=== PATIENT | female | born 1945 | race Caucasian/White ===

== ENCOUNTER 2022-07-09 10:55 | Emergency (ER) | payer OTHER ==
[2022-07-09] MEDS ORDERED: ACETAMINOPHEN 500 MG TAB ONE (11:20)
--- NOTE | 2022-07-09 11:41 | RAD REPORT ---
EXAM DESCRIPTION: RAD - Chest Single View - 07/09/2022 11:36 am CLINICAL HISTORY: Cough Chest pain. COMPARISON: No comparisons FINDINGS: Portable technique limits examination quality. The lungs are emphysematous but grossly clear. The heart is normal in size. No displaced fractures.Ao rtic atherosclerosis. IMPRESSION: COPD.
[2022-07-09] MEDS ORDERED: CEFTRIAXONE 1000 MG/VIAL ONE (11:55)
[2022-07-09] MEDS ORDERED: Ringers Lactate 1,000 ML IV ONE (11:55)
[2022-07-09 12:07] LABS: Protime INR 1.08
[2022-07-09 12:16] LABS: Albumin 3.8 g/dL (3.4-5.0); Bilirubin Total 0.5 mg/dL (0.2-1.0); Potassium 3.8 mmol/L (3.5-5.1); Protein, Total 7.2 g/dL (6.4-8.2)
[2022-07-09 12:45] LABS: Absolute Lymphocytes (CBC) 0.2 K/uL (0.7-4.9); Hematocrit 29.7 % (36.0-45.0); Lymphocytes % 8.3 % (15.3-44.8); MCV 90.3 fL (80-100); MPV 9.7 fL (7.6-11.3); RBC Red Blood Cell Count 3.29 M/uL (3.86-4.86)
[2022-07-09 12:47] LABS: SARS-COV-2 RT PCR POSITIVE (NEGATIVE)
--- NOTE | 2022-07-09 13:35 | RAD REPORT ---
EXAM DESCRIPTION: CT - Head Brain Wo Cont - 07/09/2022 1:26 pm CLINICAL HISTORY: Transient ischemic attack (TIA) COMPARISON: No comparisons TECHNIQUE: Axial 5 mm thick images of the head were obtained without IV contrast. All CT scans are performed using dose optimization technique as appropriate and may include automated exposure control or mA/KV adjustment according to patient size. FINDINGS: No intracranial hemorrhage, mass, edema or shift of mid-line structures. No acute infarcti on changes seen. No abnormal extra-axial fluid collections. Mild for age atrophy changes are present with ventricles in proportion. Mild chronic ischemic change. Mastoid air cells and visualized portions of the paranasal sinuses are clear. No acute bony findings. IMPRESSION: Negative non-contrast CT head examination for acute finding. Patient has mild atrophy and mild chronic ischemic change. There are ongoing concerns for acute CVA, follow-up MR imaging could be performed.
[2022-07-09 13:48] LABS: Urine Blood Trace-intact (Negative); Urine Glucose Negative (Negative); Urine Protein Negative (Negative); Urine Specific Gravity 1.015 (1.005-1.030)
[2022-07-09 14:03] LABS: Urine Bacteria None Seen /HPF (<20)
--- NOTE | 2022-07-09 14:15 | ER ---
Nurse's Notes [facility] Name: She Swartz Age: 77 yrs Sex: Female : 1945 Arrival Date: 07/09/2022 Time: 11:04 Bed 18 Private MD: Diagnosis: SARS-associated coronavirus as the cause of diseases classified elsewhere;Fever, unspecified Presentation: 07/09 11:04 Chief complaint: EMS states: toned out to pt home for general weakness, AMS, fever. ld1 Denies pain. 11:07 Coronavirus screen: At this time, the client does not indicate any symptoms associated ld1 with coronavirus-19. Ebola Screen: No symptoms or risks identified at this time. Initial Sepsis Screen: Does the patient meet any 2 criteria? Temp <36.0*C (96.8*F)) or > 38.3*C (100.9*F). Altered Mental Status. HR > 90 bpm. Yes Does the patient have a suspected source of infection? No. Patient's initial sepsis screen is negative. Risk Assessment: Do you want to hurt yourself or someone else? Patient reports no desire to harm self or others. Onset of symptoms was July 09, 2022. 11:07 Method Of Arrival: EMS: [facility] ld1 11:07 Acuity: JAQUELIN 3 ld1 Triage Assessment: 11:09 General: Appears in no apparent distress. comfortable, Behavior is calm, cooperative, ld1 appropriate for age. Pain: Denies pain. EENT: No signs and/or symptoms were reported regarding the EENT system. Neuro: Level of Consciousness is awake, alert, obeys commands, confused, Oriented to person, place, time, situation, Reports weakness. Cardiovascular: Capillary refill < 3 seconds Patient's skin is warm and dry. Rhythm is sinus tachycardia. Respiratory: Airway is patent Respiratory effort is even, unlabored. GI: Abdomen is flat, non-distended. : No signs and/or symptoms were reported regarding the genitourinary system. Derm: Skin temperature is hot. Musculoskeletal: No signs and/or symptoms reported regarding the musculoskeletal system. Historical: - Allergies: 11:08 No Known Allergies; ld1 - Home Meds: 11:08 Alprazolam Oral 0.25 mg as needed [Active]; Aspirin Oral 81 mg daily [Active]; ld1 11:09 Calcium Citrate Oral [Active]; Synthroid Oral daily [Active]; Clonazepam Oral 1 mg as ld1 needed [Active]; Trazodone Oral 75 mg twice a day [Active]; Metoprolol Tartrate Oral 25 mg after meals and before bedtime [Active]; - PMHx: 11:08 Aneurysm; Chronic back pain; ld1 - PSHx: 11:08 Cholecystectomy; ld1 - Immunization history:: Adult Immunizations up to date, Client reports receiving the 2nd dose of the Covid vaccine. - Social history:: Smoking status: Patient denies any tobacco usage or history of. Patient/guardian denies using alcohol. Screenin:13 [facility] ED Fall Risk Assessment (Adult) History of falling in the last 3 months, ld1 including since admission No falls in past 3 months (0 pts). Abuse screen: Denies threats or abuse. Denies injuries from another. Nutritional screening: No deficits noted. Tuberculosis screening: No symptoms or risk factors identified. Assessment: 11:13 Reassessment: See triage assessment. ld1 Vital Signs: 11:07 BP 155 / 54; Pulse 95; Resp 21; Temp 103(O); Pulse Ox 100% ; Weight 49.5 kg; Height 5 ld1 ft. 6 in. (167.64 cm); Pain 0/10; 11:07 Body Mass Index 17.61 (49.50 kg, 167.64 cm) ld1 NIH Stroke Scale Scores: 14:03 NIHSS Score: 0 [facility] ED Course: 11:04 Patient arrived in ED. 5 11:04 Johnny Cabezas PA is PHCP. jr8 11:04 Kyler Pritchard DO is Attending Physician. jr8 11:08 Triage completed. ld1 11:09 Arm band placed on. ld1 11:13 Patient has correct armband on for positive identification. Placed in gown. Bed in low ld1 position. Call light in reach. Side rails up X2. athletic monitor on. Pulse ox on. NIBP on. Door closed. Noise minimized. 11:13 No provider procedures requiring assistance completed. ld1 11:38 Chest Single View XRAY In Process Unspecified. EDMS 11:45 COVID-19/FLU A+B Sent. ld1 11:45 Inserted saline lock: 20 gauge in right antecubital area, using aseptic technique. ld1 Blood collected. 13:28 CT Head Brain wo Cont In Process Unspecified. EDMS 14:31 IV discontinued, intact, bleeding controlled, No redness/swelling at site. Pressure jh5 dressing applied. Administered Medications: 11:21 Drug: Acetaminophen 1000 mg Route: PO; ld1 11:59 Drug: Ringers - Lactated Ringers Solution 1000 ml Route: IV; Rate: bolus; Site: right 5 antecubital; 11:59 Drug: Rocephin (cefTRIAXone) 1 grams Route: IV; Rate: calculated rate; Site: right 5 antecubital; Medication: 11:13 VIS not applicable for this client. ld1 Outcome: 14:14 Discharge ordered by . chelsie 14:31 Discharged to home ambulatory. [facility] 14:31 Condition: good 14:31 Discharge instructions given to patient, family, Instructed on discharge instructions, follow up and referral plans. medication usage, safety practices, Demonstrated understanding of instructions, follow-up care, medications, Prescriptions given X 1. 14:32 Patient left the ED. jh5 NIH Stroke Scale - NIH Stroke Score Date: 07/09/2022 Time: 14:03 Total Score = 0 1a. Level of Consciousness (LOC) - 0(Alert) 1b. Level of Consciousness (LOC) (Month \T\ Age) - 0(Both) 1c. LOC Commands (Open \T\ Closes Eyes/Clinical Reviewer) - 0(Both) 2. Best Gaze (Lateral Gaze Paresis) - 0(Normal) 3. Visual Field Loss - 0(No visual loss) 4. Facial Palsy - 0(Normal) 5a. Left Arm: Motor (10-second hold) - 0(No drift) 5b. Right Arm: Motor (10-second hold) - 0(No drift) 6a. Left Leg: Motor (5-second hold - always test supine) - 0(No drift) 6b. Right Leg: Motor (5-second hold - always test supine) - 0(No drift) 7. Limb Ataxia (finger/nose \T\ heel/hudson - test with eyes open) - 0(Absent) 8. Sensory Loss (pinprick arms/legs/face) - 0(Normal) 9. Best Language: Aphasia (description/naming/reading) - 0(No aphasia) 10. Dysarthria (speech clarity - read or repeat words) - 0(Normal) 11. Extinction and Inattention (visual/tactile/auditory/spatial/personal) - 0(No abnormality) Initials: jr8 Signatures: Dispatcher [employer] Johnny Ro PA PA jr8 Yamilka Park, RN RN ld1 Inna Maza RN RN jh5
--- NOTE | 2022-07-09 14:15 | EDPHYS ---
Physician Documentation [facility] Name: She Swartz Age: 77 yrs Sex: Female : 1945 Arrival Date: 07/09/2022 Time: 11:04 Bed 18 Private MD: ED Physician Kyler Pritchard HPI: 07/09 14:03 This 77 yrs old Female presents to ER via EMS with complaints of General Weakness, jr8 Altered Mental Status, Fever. 14:03 Onset: The symptoms/episode began/occurred acutely, today. Associated signs and jr8 symptoms: Pertinent positives: fever. Modifying factors: The patient symptoms are alleviated by nothing, the patient symptoms are aggravated by nothing. The patient has not experienced similar symptoms in the past. The patient has not recently seen a physician. 77-year-old female that came in via EMS after having confusion this morning. Patient found to have 103 temperature in the emergency room. Denies any other symptoms at this time. Family stated that she was having trouble with remembering information.. Historical: - Allergies: 11:08 No Known Allergies; ld1 - Home Meds: 11:08 Alprazolam Oral 0.25 mg as needed [Active]; Aspirin Oral 81 mg daily [Active]; ld1 11:09 Calcium Citrate Oral [Active]; Synthroid Oral daily [Active]; Clonazepam Oral 1 mg as ld1 needed [Active]; Trazodone Oral 75 mg twice a day [Active]; Metoprolol Tartrate Oral 25 mg after meals and before bedtime [Active]; - PMHx: 11:08 Aneurysm; Chronic back pain; ld1 - PSHx: 11:08 Cholecystectomy; ld1 - Immunization history:: Adult Immunizations up to date, Client reports receiving the 2nd dose of the Covid vaccine. - Social history:: Smoking status: Patient denies any tobacco usage or history of. Patient/guardian denies using alcohol. ROS: 14:03 Eyes: Negative for injury, pain, redness, and discharge, ENT: Negative for injury, jr8 pain, and discharge, Neck: Negative for injury, pain, and swelling, Cardiovascular: Negative for chest pain, palpitations, and edema, Respiratory: Negative for shortness of breath, cough, wheezing, and pleuritic chest pain, Abdomen/GI: Negative for abdominal pain, nausea, vomiting, diarrhea, and constipation, Back: Negative for injury and pain, MS/Extremity: Negative for injury and deformity, Skin: Negative for injury, rash, and discoloration. 14:03 Constitutional: Positive for fever. 14:03 Neuro: Positive for altered mental status. Exam: 14:03 Constitutional: This is a well developed, well nourished patient who is awake, alert, jr8 and in no acute distress. Eyes: Pupils equal round and reactive to light, extra-ocular motions intact. Lids and lashes normal. Conjunctiva and sclera are non-icteric and not injected. Cornea within normal limits. Periorbital areas with no swelling, redness, or edema. ENT: Nares patent. No nasal discharge, no septal abnormalities noted. Tympanic membranes are normal and external auditory canals are clear. Oropharynx with no redness, swelling, or masses, exudates, or evidence of obstruction, uvula midline. Mucous membranes moist. Cardiovascular: Regular rate and rhythm with a normal S1 and S2. No gallops, murmurs, or rubs. Normal PMI, no JVD. No pulse deficits. Respiratory: Lungs have equal breath sounds bilaterally, clear to auscultation and percussion. No rales, rhonchi or wheezes noted. No increased work of breathing, no retractions or nasal flaring. Abdomen/GI: Soft, non-tender, with normal bowel sounds. No distension or tympany. No guarding or rebound. No evidence of tenderness throughout. Back: No spinal tenderness. No costovertebral tenderness. Full range of motion. Skin: Warm, dry with normal turgor. Normal color with no rashes, no lesions, and no evidence of cellulitis. MS/ Extremity: Pulses equal, no cyanosis. Neurovascular intact. Full, normal range of motion. 14:03 Neuro: Orientation: to person, place \T\ time. Mentation: slow to respond, confused, Memory: immediate memory is intact, remote memory is impaired, recent memory is intact, Cranial nerves: CN I not tested, CN II- XII are normal as tested, Cerebellar function: is grossly normal, Motor: moves all fours, Sensation: is normal, seizure activity, is not displayed by the patient, Abnormal movements: there are no abnormal movements. 14:03 ECG was reviewed by the Attending Physician. [facility] Vital Signs: 11:07 BP 155 / 54; Pulse 95; Resp 21; Temp 103(O); Pulse Ox 100% ; Weight 49.5 kg; Height 5 ld1 ft. 6 in. (167.64 cm); Pain 0/10; 11:07 Body Mass Index 17.61 (49.50 kg, 167.64 cm) ld1 NIH Stroke Scale Scores: 14:03 NIHSS Score: 0 jr8 MDM: 11:04 Patient medically screened. jr8 14:03 Data reviewed: vital signs, nurses notes, lab test result(s), CBC, white blood cell jr8 count, hemoglobin, hematocrit, platelets, electrolytes, sodium, potassium, chloride, serum bicarbonate, BUN, creatinine, serum glucose, Flu: negative covid +, EKG, radiologic studies, CT scan, plain films. Consideration of Admission/Observation Patient hemodynamically stable at this time. No fever currently. HR back to normal. No AMS after fluids and fever was reduced . Independent interpretation of the following test(s) in the Emergency Department EKG: See my EKG interpretation above X-Ray: My interpretation is No focal consolidation to suggest pneumonia. No other acute cardiopulmonary findings. Counseling: I had a detailed discussion with the patient and/or guardian regarding: the historical points, exam findings, and any diagnostic results supporting the discharge/admit diagnosis, lab results, radiology results. Response to treatment: the patient's symptoms have markedly improved after treatment, patient is well hydrated. 14:16 ED course: Patient doing markedly better. Now that fever is gone patient has no altered [facility] mentation. Discussed with patient and family that 103 temperature can be high and can cause altered mentation. No other bacterial findings to suggest otherwise. COVID-positive. Needs to isolate at home, push fluids, use [id number] medication for fever reduction and pain. We will start her on antiviral. If she worsens any point time to come back to the emergency room for further evaluations. Watch for respiratory distress. Patient and family good with plan will follow up and/or come back. Otherwise patient hemodynamically stable and safe to be discharged with close follow-up. Will be with daughter entire time as well.. 07/09 11:05 Order name: Blood Culture Adult (2) jr8 07/09 11:05 Order name: CBC with Diff; Complete Time: 13:06 jr8 07/09 11:05 Order name: CMP; Complete Time: 13:06 07/09 11:05 Order name: Lactate w/ 2H reflex if indic.; Complete Time: 13:07/09 11:05 Order name: Protime (+inr); Complete Time: 13:06 07/09 11:05 Order name: Ptt, Activated; Complete Time: 13:06 07/09 11:05 Order name: Chest Single View XRAY; Complete Time: 11:44 07/09 11:05 Order name: COVID-19/FLU A+B; Complete Time: 13:06 07/09 11:50 Order name: Glucose, Ancillary Testing; Complete Time: 13:06 EDMS 07/09 13:48 Order name: Urine Dipstick-Ancillary; Complete Time: 14:01 EDMS 07/09 13:54 Order name: Urine Microscopic Only; Complete Time: 14:11 07/09 13:54 Order name: Urine Culture 07/09 11:05 Order name: EKG; Complete Time: 11:06 07/09 11:05 Order name: Accucheck; Complete Time: 11:13 07/09 11:05 Order name: Cardiac monitoring; Complete Time: 11:14 07/09 11:05 Order name: Cath; Complete Time: 13:53 07/09 11:05 Order name: EKG - Nurse/Tech; Complete Time: 11:45 07/09 11:05 Order name: IV Saline Lock - Large Bore; Complete Time: 11:45 07/09 11:05 Order name: Labs collected and sent; Complete Time: 11:45 07/09 11:05 Order name: O2 Per Protocol; Complete Time: 11:14 07/09 11:05 Order name: O2 Sat Monitoring; Complete Time: 11:13 07/09 11:05 Order name: Vital Signs; Complete Time: 11:07/09 12:06 Order name: Labs - recollect needed: recollect lavender top; Complete Time: 12:45 07/09 13:08 Order name: CT Head Brain wo Cont; Complete Time: 14:01 8 EC:03 Rate is 93 beats/min. Rhythm is regular, Normal Sinus Rhythm. QRS Bard is Normal. MT jr8 interval is normal at 162 msec. QRS interval is normal at 82 msec. QT interval is normal at 370 msec. No Q waves. T waves are Normal. No ST changes noted. Clinical impression: Normal ECG. Interpreted by me. Reviewed by me. Administered Medications: 11:21 Drug: Acetaminophen 1000 mg Route: PO; ld1 11:59 Drug: Ringers - Lactated Ringers Solution 1000 ml Route: IV; Rate: bolus; Site: right [facility] antecubital; 11:59 Drug: Rocephin (cefTRIAXone) 1 grams Route: IV; Rate: calculated rate; Site: right 5 antecubital; Disposition: 19:19 Co-signature as Attending Physician, Kyler BERNARD was immediately available on-site ms3 in the Emergency Department for consultation in the care of the patient. Disposition Summary: 07/09/22 14:14 Discharge Ordered Location: Home jr8 Problem: new jr8 Symptoms: have improved jr8 Condition: Stable jr8 Diagnosis - SARS-associated coronavirus as the cause of diseases classified elsewhere jr8 - Fever, unspecified jr8 Followup: jr8 - With: Private Physician - When: 1 week - Reason: Recheck today's complaints, Continuance of care, Re-evaluation by your physician Discharge Instructions: - Discharge Summary Sheet jr8 - COVID-19 jr8 - 10 Things You Can Do to Manage Your COVID-19 Symptoms at Home - [facility] jr8 Forms: - Medication Reconciliation Form jr8 - Thank You Letter jr8 - Antibiotic Education jr8 - Prescription Opioid Use jr8 Prescriptions: - molnupiravir 200 mg Oral capsule - take 4 capsule by ORAL route every 12 hours for 5 days; 40 capsule; Refills: 0, jr8 Product Selection Permitted NIH Stroke Scale - NIH Stroke Score Date: 07/09/2022 Time: 14:03 Total Score = 0 1a. Level of Consciousness (LOC) - 0(Alert) 1b. Level of Consciousness (LOC) (Month \T\ Age) - 0(Both) 1c. LOC Commands (Open \T\ Closes Eyes/Real Estate Loan Processor) - 0(Both) 2. Best Gaze (Lateral Gaze Paresis) - 0(Normal) 3. Visual Field Loss - 0(No visual loss) 4. Facial Palsy - 0(Normal) 5a. Left Arm: Motor (10-second hold) - 0(No drift) 5b. Right Arm: Motor (10-second hold) - 0(No drift) 6a. Left Leg: Motor (5-second hold - always test supine) - 0(No drift) 6b. Right Leg: Motor (5-second hold - always test supine) - 0(No drift) 7. Limb Ataxia (finger/nose \T\ heel/hudson - test with eyes open) - 0(Absent) 8. Sensory Loss (pinprick arms/legs/face) - 0(Normal) 9. Best Language: Aphasia (description/naming/reading) - 0(No aphasia) 10. Dysarthria (speech clarity - read or repeat words) - 0(Normal) 11. Extinction and Inattention (visual/tactile/auditory/spatial/personal) - 0(No abnormality) Initials: chelsie Signatures: Dispatcher [employer] EDMS Martita Nagel Josh, PA PA jr8 Kyler Pritchard, DO ms3 Yamilka Park, RN RN ld1 Inna Maza RN RN jh5 Corrections: (The following items were deleted from the chart) 13:33 11:06 Urine Culture+BA.LAB.BRZ ordered. EDMS EDMS 13:33 11:06 UA MICROSCOPIC+U.LAB.BRZ ordered. EDMS EDMS 13:33 13:06 UA MICROSCOPIC+U.LAB.BRZ reviewed. jr8 EDMS
[2022-07-09 15:57] VITALS: BP 155/54; TEMP 103; O2SAT 100
--- NOTE | 2022-07-10 12:29 | EKG ---
Test Date: 2022-07-09 Test Time: 11:59:32 Bioinformatics Specialist: SAMIR MEASUREMENT RESULTS: Intervals: Rate: 93 MN: 162 QRSD: 82 QT: 370 QTc: 460 [place]: P: 80 MN: 162 QRS: 1 T: 56 INTERPRETIVE STATEMENTS: Normal sinus rhythm Nonspecific ST abnormality Abnormal ECG No previous ECG available for comparison Electronically Signed On 07-10-22 12:25:29 PAPER SLITTER by Cesar Roblero
== END 2022-07-09 14:32 | disposition home or self-care (01) ==
LOC: ER 10:55
DX: U07.1 COVID-19 (principal); Z79.82 Long term (current) use of aspirin
CPT/HCPCS: 93005; 87040 ×2; 87088; 85025; 87086; 36415; 85610; 82947; 83605; 85730; 80053; 0240U; 70450; 71045; 96375; 96374; 99284; J7120; 81003; 81015